=== PATIENT | male | born 1945 | race Caucasian/White ===

== ENCOUNTER 2023-11-05 08:24 | Day surgery (SDC) | payer MEDICARE, MEDICAID ==
[~2023-11-05] VITALS: Ht 160 cm; Wt 65.8 kg
[2023-11-05 08:48] VITALS: O2SAT 97
[2023-11-05] MEDS ORDERED: MEPERIDINE 100 MG INJ. 100 MG/ML VIAL ONE (09:52)
[2023-11-05] MEDS ORDERED: SIMETHICONE 40 MG/0.6 ML ML ONE (09:52)
[2023-11-05] MEDS ORDERED: MIDAZOLAM HCL 5 MG/5 ML VIAL ONE (09:53)
[2023-11-05 17:09] VITALS: BP_SYST 131; PULSE 82; RESP 16
== END 2023-11-05 11:25 | disposition home or self-care (01) ==
LOC: SDS 08:24 → SMU 08:26 → SDS 11:25
PROVIDERS: ATTEND Internal Medicine Gastroenterology
DX: K59.00 Constipation, unspecified (principal); K63.5 Polyp of colon; K57.30 Diverticulosis of large intestine without perforation or abscess without bleeding; K64.8 Other hemorrhoids; I10 Essential (primary) hypertension; E11.9 Type 2 diabetes mellitus without complications; Z79.84 Long term (current) use of oral hypoglycemic drugs; Z79.899 Other long term (current) drug therapy; Z86.010 Personal history of colon polyps
CPT/HCPCS: 45385; 82948; 88305; 99152; G0378; J2250; J2175